=== PATIENT | male | born 2000 | race Caucasian/White ===

== ENCOUNTER 2025-02-19 16:38 | Emergency (ER) | payer OTHER ==
[2025-02-19 16:53] VITALS: TEMP 98.4
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
[2025-02-19] MEDS: IBUPROFEN 800 MG TAB PO STA (17:42)
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
[2025-02-19 18:32] VITALS: PULSE 80
[2025-02-19 18:55] VITALS: BP 129/82; RESP 18
== END 2025-02-19 18:53 | disposition home or self-care (01) ==
LOC: EC 16:38
DX: S20.212A Contusion of left front wall of thorax, initial encounter (principal); Z87.891 Personal history of nicotine dependence; Z88.8 Allergy status to other drugs, medicaments and biological substances; V49.40XA Driver injured in collision with unspecified motor vehicles in traffic accident, initial encounter; Y92.410 Unspecified street and highway as the place of occurrence of the external cause
CPT/HCPCS: 93005; 99285